=== PATIENT | male | born 1965 | race Two or more races ===

== ENCOUNTER 2019-04-10 08:00 | Emergency (ER) | payer SELFPAY ==
[~2019-04-10] VITALS: Ht 162.6 cm; Wt 76.2 kg
[2019-04-10 08:03] VITALS: Ht 162.6 cm; Wt 76.2 kg
[2019-04-10 09:53] VITALS: BP 128/75
== END 2019-04-10 09:53 | disposition home or self-care (01) ==
LOC: ED 08:00
DX: J11.1 Influenza due to unidentified influenza virus with other respiratory manifestations (principal); Z87.19 Personal history of other diseases of the digestive system
CPT/HCPCS: J1885